=== PATIENT | male | born 2000 | race Hispanic/Latino ===

== ENCOUNTER 2023-09-18 12:38 | Emergency (ER) | payer SELFPAY ==
[~2023-09-18] VITALS: Ht 165.1 cm; Wt 64.0 kg
[2023-09-18 12:38] VITALS: BP 116/63; TEMP 97.1; O2SAT 98
[2023-09-18] MEDS ORDERED: FLUORESCEIN OPHTH 1MG STRIP OS ONE (14:40)
[2023-09-18] MEDS ORDERED: PROPARACAINE 0.5% OPHTH SOL 15ML OS ONE (14:40)
[2023-09-18] MEDS ORDERED: ERYTHROMYCIN OPHTH OINT OS ONE (15:10)
[2023-09-18] MEDS ORDERED: BOOSTRIX VACCINE (TETANUS/DIPHTH/ACEL. PERTUSSIS) 0.5ML SYR IM.IMMUN ONE (15:10)
[2023-09-18] MEDS ORDERED: ERYT5OIN25 OS (15:17)
== END 2023-09-18 15:58 | disposition home or self-care (01) ==
LOC: M ED 12:38
DX: T15.02XA Foreign body in cornea, left eye, initial encounter (principal); Z79.2 Long term (current) use of antibiotics; Y92.9 Unspecified place or not applicable; Z23 Encounter for immunization